=== PATIENT | female | born 1935 | race Caucasian/White ===

== ENCOUNTER → 2016-06-15 | Outpatient (CLI) | payer MEDICARE, OTHER ==
[~2016-06-15] MED LIST: DONE5TAB7 PO; METH2.5 PO; METH2.5T PO; NEXI20CA PO; ZOFR4TAB3 SL
[2016-06-15 12:54] LABS: AUTOMATED NEUTROPHIL # 2.8 TH/MM3 (1.8-7.7); BASOPHIL % 0.8 % (0.0-2.0); EOSINOPHIL # 0.2 TH/MM3 (0-0.4); EOSINOPHIL % 4.2 % (0.0-4.0); HEMATOCRIT 43.9 % (35.0-46.0); HEMO FLAGS DIFF FINAL; LYMPH % 33.4 % (9.0-44.0); LYMPHOCYTE # 1.9 TH/MM3 (1.0-4.8); MEAN CELL VOLUME 86.3 FL (80.0-100.0); MEAN CORPUSCULAR HEMOGLOBIN 28.2 PG (27.0-34.0); MEAN CORPUSCULAR HGB CONC 32.6 % (32.0-36.0); MONO % 11.2 % (0.0-8.0); NEUT % 50.4 % (16.0-70.0); PLATELET COUNT 176 TH/MM3 (150-450); RED BLOOD COUNT 5.08 MIL/MM3 (4.00-5.30); RED CELL DISTRIBUTION WIDTH 13.7 % (11.6-17.2); WHITE BLOOD COUNT 5.6 TH/MM3 (4.0-11.0)
[2016-06-15 13:46] LABS: HEMOGLOBIN A1b 1.9 %; HEMOGLOBIN Ao 84.9 %; HEMOGLOBIN LA1C 2.1 %; HEMOGLOBIN P3 3.8 %
[2016-06-15 13:47] LABS: ALKALINE PHOSPHATASE 68 U/L (45-117); ALT (GPT) 17 U/L (10-53); ANION GAP 6 MEQ/L (5-15); AST (GOT) 14 U/L (15-37); BICARBONATE 31.3 MEQ/L (21.0-32.0); BLOOD UREA NITROGEN 14 MG/DL (7-18); CHLORIDE 105 MEQ/L (98-107); GLOMERULAR FILTRATION RATE 67 ML/MIN (>89); GLUCOSE,FASTING 96 MG/DL (74-99); HDL CHOLESTEROL 56.3 MG/DL (40.0-60.0); LDL CHOLESTEROL 139 MG/DL (0-99); POTASSIUM 4.4 MEQ/L (3.5-5.1); SODIUM (NA) 142 MEQ/L (136-145); TOTAL BILIRUBIN ADULT 0.4 MG/DL (0.2-1.0)
== END ==
LOC: PLAB 09:33
PROVIDERS: ATTEND Family Medicine
DX: E55.9 Vitamin D deficiency, unspecified (principal); E78.4 Other hyperlipidemia; R53.83 Other fatigue; R73.01 Impaired fasting glucose; D51.8 Other vitamin B12 deficiency anemias
CPT/HCPCS: 36415; 80053; 80061; 82306; 82607; 83036; 84443; 85025

== ENCOUNTER 2016-09-25 13:54 | Emergency (ER) | payer MEDICARE, OTHER ==
[~2016-09-25] VITALS: Ht 162.6 cm; Wt 72.0 kg
[~2016-09-25 13:54] MED LIST changes: -DONE5TAB7 PO; -METH2.5T PO
[2016-09-25 13:58] VITALS: BP 115/60; PULSE 114; RESP 18; TEMP 97.6; O2SAT 98
[2016-09-25] MEDS ORDERED: METH2.5T PO (14:12)
[2016-09-25] MEDS ORDERED: DONE5TAB7 PO (14:12)
--- NOTE | 2016-09-25 14:25 | PD ---
HPI Chief Complaint: Nosebleed Time Seen by Provider: 14:07 Travel History International Travel<30 days: No Contact w/Intl Traveler<30days: No Traveled to known affect area: No History of Present Illness HPI This patient presents for evaluation of nosebleed. She had a spontaneous nosebleed today. It stopped spontaneously prior to arrival. She is not having pain or presyncopal symptoms. This is her third nosebleed in 2 weeks. Symptoms severity this time is mild. No alleviating factors. She takes a baby aspirin daily for no specific reason but she just decided to PFS Past Medical History Hx Anticoagulant Therapy: No Diminished Hearing: No GERD: Yes Musculoskeletal: Yes (psoriatic arthritis) Past Surgical History Hysterectomy: Yes Social History Alcohol Use: No Tobacco Use: No Substance Use: No Allergies-Medications (Allergen,Severity, Reaction): Coded Allergies: Percocet (Verified Allergy, Mild, NAUSEA, 09/25/16) Reported Meds & Prescriptions Reported Meds & Active Scripts Active Reported Donepezil 5 Mg Tab 5 Mg PO HS Methotrexate 2.5 Mg Tab 2.5 Mg PO Q7D Review of Systems General / Constitutional: No: Fever HENT: Positive: Nosebleed Cardiovascular: No: Chest Pain or Discomfort Respiratory: No: Cough Physical Exam Narrative NECK: Symmetrical appearance, midline trachea. No mass or crepitus. Thyroid without enlargement, tenderness, or mass. SKIN: Focused skin assessment reveals no rash or ulcers. Skin is warm and dry. Palpation shows no induration or nodules. Throat clear Nose: Left nostril clear. Right nostril has some dried blood on the anterior area but no active bleeding Data Data Last Documented VS Vital Signs Date Time Temp Pulse Resp B/P Pulse Ox O2 Delivery O2 Flow Rate FiO2 09/25/16 13:58 97.6 114 18 115/60 98 MDM Medical Decision Making Medical Screen Exam Complete: Yes Emergency Medical Condition: Yes Medical Record Reviewed: Yes Differential Diagnosis Epistaxis, mucosal lesion, nasal trauma Narrative Course I have reviewed the patient's electronic medical record. Reviewed her Gen. lab studies, 4 months ago which revealed hemoglobin of 15 Discussed options with the patient which include simply observing versus silver nitrate cautery Patient does not want any cautery done. She is not bleeding now and wants to follow-up with ear nose throat as an outpatient I told her to stop her aspirin for now Diagnosis Primary Impression: Epistaxis Additional Instructions: Follow-up with ear nose throat physician Stop aspirin Med/Other Pt SpecificInfo: Other Disposition: 01 DISCHARGE HOME Condition: Stable Eloy Ivory MD September 25, 2016 14:25
== END 2016-09-25 14:58 | disposition home or self-care (01) ==
LOC: PHED 13:54
DX: R04.0 Epistaxis (principal); Z79.82 Long term (current) use of aspirin; K21.9 Gastro-esophageal reflux disease without esophagitis
CPT/HCPCS: 99283

== ENCOUNTER → 2017-03-12 | Outpatient (CLI) | payer MEDICARE, OTHER ==
[~2017-03-12] MED LIST changes: +DONE5TAB7 PO; -METH2.5 PO; +METH2.5T PO; -NEXI20CA PO; -ZOFR4TAB3 SL
[2017-03-12 16:18] LABS: AUTOMATED NEUTROPHIL # 3.1 TH/MM3 (1.8-7.7); BASOPHIL # 0.1 TH/MM3 (0-0.2); EOSINOPHIL # 0.2 TH/MM3 (0-0.4); EOSINOPHIL % 2.9 % (0.0-4.0); LYMPH % 35.7 % (9.0-44.0); LYMPHOCYTE # 2.1 TH/MM3 (1.0-4.8); MEAN CELL VOLUME 87.8 FL (80.0-100.0); MEAN CORPUSCULAR HEMOGLOBIN 28.8 PG (27.0-34.0); MEAN CORPUSCULAR HGB CONC 32.9 % (32.0-36.0); NEUT % 51.4 % (16.0-70.0); PLATELET COUNT 171 TH/MM3 (150-450); RED BLOOD COUNT 4.78 MIL/MM3 (4.00-5.30); RED CELL DISTRIBUTION WIDTH 13.7 % (11.6-17.2); WHITE BLOOD COUNT 5.9 TH/MM3 (4.0-11.0)
[2017-03-12 16:38] LABS: ALKALINE PHOSPHATASE 63 U/L (45-117); ALT (GPT) 21 U/L (10-53); HDL CHOLESTEROL 61.6 MG/DL (40.0-60.0); TOTAL BILIRUBIN ADULT 0.4 MG/DL (0.2-1.0)
[2017-03-12 16:47] LABS: ANION GAP 6 MEQ/L (5-15); AST (GOT) 28 U/L (15-37); BICARBONATE 28.2 MEQ/L (21.0-32.0); BLOOD UREA NITROGEN 14 MG/DL (7-18); CHLORIDE 106 MEQ/L (98-107); GLOMERULAR FILTRATION RATE 71 ML/MIN (>89); GLUCOSE,FASTING 81 MG/DL (74-99); LDL CHOLESTEROL 114 MG/DL (0-99); POTASSIUM 4.5 MEQ/L (3.5-5.1); SODIUM (NA) 140 MEQ/L (136-145)
[2017-03-12 17:48] LABS: HEMO FLAGS AUTO DIFF
[2017-03-12 18:44] LABS: PLATELET ESTIMATE SMEAR NORMAL (NORMAL); PLATELET MORPHOLOGY ENLARGED (NORMAL); SCAN/DIFF AUTO DIFF CONFIRMED
== END ==
LOC: PLAB 11:54
PROVIDERS: ATTEND Family Medicine
DX: E78.5 Hyperlipidemia, unspecified (principal); L40.9 Psoriasis, unspecified; G31.84 Mild cognitive impairment of uncertain or unknown etiology
CPT/HCPCS: 36415; 80053; 80061; 84443; 85025

== ENCOUNTER → 2017-09-20 | Outpatient (CLI) | payer MEDICARE, OTHER ==
[2017-09-20 14:04] LABS: AUTOMATED NEUTROPHIL # 2.6 TH/MM3 (1.8-7.7); BASOPHIL # 0.1 TH/MM3 (0-0.2); EOSINOPHIL # 0.2 TH/MM3 (0-0.4); EOSINOPHIL % 4.3 % (0.0-4.0); HEMATOCRIT 40.4 % (35.0-46.0); HEMOGLOBIN 13.1 GM/DL (11.6-15.3); LYMPH % 35.1 % (9.0-44.0); LYMPHOCYTE # 1.8 TH/MM3 (1.0-4.8); MEAN CELL VOLUME 87.6 FL (80.0-100.0); MEAN CORPUSCULAR HEMOGLOBIN 28.5 PG (27.0-34.0); MEAN CORPUSCULAR HGB CONC 32.5 % (32.0-36.0); MEAN PLATELET VOLUME 11.5 FL (7.0-11.0); MONO % 9.1 % (0.0-8.0); MONOCYTE # 0.5 TH/MM3 (0-0.9); NEUT % 50.5 % (16.0-70.0); PLATELET COUNT 178 TH/MM3 (150-450); RED BLOOD COUNT 4.61 MIL/MM3 (4.00-5.30); RED CELL DISTRIBUTION WIDTH 13.7 % (11.6-17.2); WHITE BLOOD COUNT 5.2 TH/MM3 (4.0-11.0)
[2017-09-20 14:10] LABS: ALBUMIN 3.3 GM/DL (3.4-5.0); AST (GOT) 23 U/L (15-37); BICARBONATE 30.2 MEQ/L (21.0-32.0); BLOOD UREA NITROGEN 13 MG/DL (7-18); CHLORIDE 106 MEQ/L (98-107); CHOLESTEROL 192 MG/DL (120-200); CREATININE 0.78 MG/DL (0.50-1.00); GLOMERULAR FILTRATION RATE 71 ML/MIN (>89); GLUCOSE,FASTING 92 MG/DL (74-99); SODIUM (NA) 143 MEQ/L (136-145)
[2017-09-20 14:22] LABS: ALKALINE PHOSPHATASE 66 U/L (45-117); ALT (GPT) 21 U/L (10-53); CHOLESTEROL/ HDL RATIO 3.39 RATIO; HDL CHOLESTEROL 56.5 MG/DL (40.0-60.0); LDL CHOLESTEROL 115 MG/DL (0-99); TOTAL BILIRUBIN ADULT 0.4 MG/DL (0.2-1.0); TOTAL PROTEIN 6.9 GM/DL (6.4-8.2); TRIGLYCERIDES 102 MG/DL (42-150)
== END ==
LOC: PLAB 11:14
PROVIDERS: ATTEND Family Medicine
DX: E78.5 Hyperlipidemia, unspecified (principal); L40.9 Psoriasis, unspecified; G31.84 Mild cognitive impairment of uncertain or unknown etiology
CPT/HCPCS: 36415; 80053; 80061; 84443; 85025